=== PATIENT | female | born 1990 | race Caucasian/White ===

== ENCOUNTER 2019-08-19 17:18 | Observation (INO) | payer OTHER, SELFPAY ==
[2019-08-19 18:00] VITALS: BMI 34.0
--- NOTE | 2019-08-19 18:48 | OBADM ---
This patient, Marcy Garay, admitted to the OB room Labor/Delivery/Recovery 120 for observation. Patient/family oriented to hospital policies and general routines including ID bracelet, bed and alarms, visiting hours, pain management, procedures, bathroom and other care routines, personal items, smoking policy, room service/diet, and visiting hours. Patient/Family are encouraged to report perceived risks to care and to ask questions if they do not understand what they are told or what they should do. Pt states she has been having cramping for past 2 weeks. Pt states she walked to bus stop today and pain increased. Pt has been leaking fluid for past 2 weeks and increased today around noon. Pt states pain was 10/10. Pain has decreased while sitting on stretcher. Pt feeling movements. Pt having irritability on monitors and talking throughand not breathing them.
[2019-08-19 18:50] LABS: Add Urine Microscopic? YES; Appearance Urine Cloudy (Clear); Bacteria Urine Trace /hpf; Bilirubin Urine Negative (Negative); Blood Urine Negative (Negative); Color Urine Yellow (Yellow); Glucose Urine UA Negative (Negative); Ketones Urine 2+ mg/dL (Negative); Leukocyte Esterase Ur Negative LEU/UL (NEGATIVE); Mucus Urine Moderate /lpf; Nitrate Urine Negative (Negative); Protein Urine 1+ mg/dL (Negative); Specific Grav Ur 1.023 (1.001-1.035); Squamous Epithelial Cell Urine Moderate /hpf (Few); Urobilinogen Urine Negative mg/dL (<2.0)
--- NOTE | 2019-09-02 07:57 | P.PNOB_ITS ---
OB - Triage/Final Diagnosis Evaluation Laboratory results: Laboratory Tests 08/19/19 18:31 Urine Color Yellow Urine Appearance Cloudy H Urine pH 5.0 Ur Specific [place] 1.023 Urine Protein 1+ H Urine Glucose (UA) Negative Urine Ketones 2+ H Ur Blood (Man) Negative Urine Nitrate Negative Urine Bilirubin Negative Urine Urobilinogen Negative Ur Leukocyte Esterase Negative Urine RBC 6-10 H Urine WBC 4-6 H Ur Squamous Epith Cells Moderate H Urine Bacteria Trace Urine Mucus Moderate H Final Diagnosis (1) False labor: Code(s): O47.9 - False labor, unspecified Status: Acute
== END 2019-08-19 19:49 | disposition home or self-care (01) ==
PROVIDERS: Advanced Practice Midwife; Admitting Provider Obstetrics & Gynecology; Visit Provider Obstetrics & Gynecology
DX: O47.1 False labor at or after 37 completed weeks of gestation (principal); Z3A.37 37 weeks gestation of pregnancy
CPT/HCPCS: 81001; 87086; 87088; G0378; G0379

== ENCOUNTER 2019-09-03 09:36 | Inpatient (IN) | payer OTHER, SELFPAY ==
--- NOTE | 2019-09-02 14:40 | PC.NURSE ---
VERIFIED WITH OR SCHEDULE AND PATIENT--C/S WITH TUBAL LIGATION ON 09/03/2019 AT 1200 PATIENT INSTRUCTED TO BE IN OB 2 HOURS BEFORE SURGERY TIME AND NOTHING BY MOUTH AFTER MIDNIGHT TONIGHT--PATIENT VERBALIZED HER UNDERSTANDING. PATIENT STATES SHE HAD LABS DRAWN TODAY
[2019-09-03] VITALS (54 sets, daily range): BP systolic 82–151; BP diastolic 42–95; PULSE 60–143; RESP 14–20; TEMP 36.3–36.8; O2SAT 83–100; BMI 34.7
[2019-09-03] MEDS: LACTATED RINGERS 1,000 ML 125 ML IV CONT (10:06)
--- NOTE | 2019-09-03 10:07 | WPDANESEPPF ---
Anes - Initial Pre Proc Eval Procedure: Operation Date: 09/03/19 12:00 Proposed Procedures p Section with Tubal Ligation - Nasir Pressley MD Date/Time: 09/03/19 10:07 Surgeon: Nasir Pressley MD Pre Op Diagnosis: Repeat , Vol Sterilization Patient Data Age: 28 Gender: F Height: 1.75 m Weight: 106.5 kg Last Vital Signs Pulse 98 09/03/19 09:54 BP 104/64 09/03/19 09:54 Pulse Ox 100 09/03/19 09:57 Allergies Allergy/AdvReac Type Severity Reaction Status Date / Time No Known Allergies Allergy Verified 09/02/19 14:22 Home Medications Medication Instructions Recorded Confirmed Type PNV cmb#95-ferrous fumarate-FA 1 tablet PO DAILY 08/19/19 08/19/19 History [] Patient hx anesthesia problems: none Family hx anesthesia problems: none PMFSH Past Medical History Medical History (Updated 09/03/19 @ 10:08 by Pérez Louise MD) Anxiety Migraine Scoliosis Surgical History Surgical History (Updated 09/03/19 @ 10:08 by Pérez Louise MD) H/O section X3 Family History Family History (Updated 09/02/19 @ 14:23 by Janes Resendiz RN) Father Diabetes mellitus Grandparent Diabetes mellitus Hypertension Social History Social History Substance use: never Spiritual care concerns: No Anes - Eval Final PreProcedure Day of Procedure 09/03/19 10:07 Patient weight: overweight Heart: regular rate and rhythm Lungs: clear to auscultation and normal air movement Airway: Mallampati scale class II Neurological: alert and oriented Last oral intake: >/= 8 hours ASA classification: II Emergent: no Anesthetic plan: proceed Anesthesia type and monitoring: regional spinal Informed Consent: The patient's anesthetic plan and its attendant risks and benefits were discussed with the patient/family/POA. Questions were solicited and answers provided to the satisfaction of the patient/family/POA.
--- NOTE | 2019-09-03 10:17 | PM.IMHP ---
H&P: HPI History of Present Illness Chief complaint: Repeat , Vol Sterilization Narrative: Marcy Garay is a 28 year old multiparous female with a term gestation and history of previous delivery. She presents for repeat delivery. She also has unwanted fertility. We have agreed to proceed with repeat delivery and bilateral tubal ligation. She understands the risk. She understands that injuries may occur that result in hospitalization, severe illness, and more surgery. She understands there is risk of hemorrhage and infection. She has completed the informed consent process is ready to proceed. Review of Systems Constitutional: Constitutional: Reports no additional constitutional complaints, Denies fatigue, Denies headache(s), Denies lethargy and Denies weakness Eyes: Eyes: Reports no additional eye complaints, Denies blurry vision and Denies photophobia ENT: Reports as per HPI, Denies headache(s) and Denies neck pain Cardiovascular: Cardiovascular: Denies chest pain, Denies diaphoresis, Denies leg edema, Denies palpitations and Denies dyspnea Respiratory: Respiratory: Denies hemoptysis, Denies dyspnea and Denies wheezing Gastrointestinal: Gastrointestinal: Denies abdominal pain, Denies melena, Denies bloating, Denies hematochezia, Denies nausea and Denies vomiting Genitourinary: Genitourinary: Reports no additional female genitourinary complaints Musculoskeletal: Musculoskeletal: Denies joint swelling, Denies neck pain, Denies numbness and Denies stiffness Neurologic: Denies Abnormal speech present, Denies confusion, Denies headache(s), Denies numbness and Denies weakness Psychiatric: Psychiatric: Denies anxiety, Denies confusion, Denies depression, Denies homicidal ideation and Denies suicidal ideation Endocrine: Endocrine: Denies fatigue and Denies palpitations Allergic/Immunologic: Allergic/Immunologic: Denies wheezing PMFSH Past Medical History Medical History (Updated 09/03/19 @ 10:20 by Nasir Pressley MD) Anxiety Migraine Scoliosis Surgical History Surgical History (Updated 09/03/19 @ 10:20 by Nasir Pressley MD) H/O section X3 Family History Family History (Updated 09/02/19 @ 14:23 by Janes Resendiz RN) Father Diabetes mellitus Grandparent Diabetes mellitus Hypertension Social History Social History Substance use: never Spiritual care concerns: No Meds Home Medications and Allergies Home Medications Medication Instructions Recorded Confirmed Type PNV cmb#95-ferrous fumarate-FA 1 tablet PO DAILY 08/19/19 08/19/19 History [] Allergies Allergy/AdvReac Type Severity Reaction Status Date / Time No Known Allergies Allergy Verified 09/02/19 14:22 Vital Signs Vital Signs - 24 hr 09/03/19 09:52 09/03/19 09:54 09/03/19 09:57 Pulse Rate 98 Blood Pressure 104/64 Pulse Oximetry 100 100 Exam Const: General: healthy appearing, comfortable and no acute distress; No confusion Orientation/consciousness: No confusion Eyes: Direct Ophthalmoscopy: No photophobia Resp: Auscultation: clear to auscultation bilaterally, no rales, no rhonchi and no wheezes Cardio: Rate: regular rate Heart sounds: no click, no murmurs and no rubs GI: Inspection: non-distended GI Palp: No abdominal tenderness Auscultation: normal bowel sounds Neuro: General: No confusion Speech: No Abnormal speech present Extrem: General: normal to inspection, no pedal edema and no calf tenderness Assessment and Plan Assessment and plan (1) Previous delivery, antepartum condition or complication: Code(s): O34.219 - Maternal care for unspecified type scar from previous delivery Status: Acute (2) Unwanted fertility: Code(s): Z30.09 - Encounter for other general counseling and advice on contraception Status: Acute Assessment and Plan: This patient is a 28-year-old mu
[2019-09-03] MEDS: ceFAZolin 2 GM/D5W 50 ML 2 GM/50 ML BAG IVPB (10:27)
--- NOTE | 2019-09-03 12:24 | PM.PROC ---
Procedure Note - Detailed Date of procedure: 09/03/19 Pre-op diagnosis: Repeat , Vol Sterilization Unwanted fertility Post-op diagnosis: same Procedure performed: Repeat low-transverse delivery, tubal ligation Description of procedure: The patient was taken the operating room. She was prepped and draped in the dorsal supine position with leftward tilt after induction of spinal anesthetic. When anesthesia was found to be adequate a low-transverse skin incision was made and carried down to the level the fascia with the knife. The fascial incision was made at the midline with a scalpel. The fascial incision was extended laterally with Cifuentes scissors. The fascia was tented upward superior and inferior with Sarah clamps. The rectus muscles were dissected off bluntly. The rectus muscles at the midline. The preperitoneal fat was dissected bluntly at the superior aspect of the separate the rectus muscles. The peritoneal cavity was entered bluntly in the same area. The peritoneal incision was extended superior and inferior with good position of bladder. Bladder blade was inserted. A low-transverse incision was made on the uterus with the scalpel. It was carried down the level of the amniotic cavity with a knife. The amniotic cavity bluntly. The uterine incision was made laterally with blunt traction. The was delivered. The cord was clamped and cut. The was handed off to waiting pediatric staff. Cord bloods were obtained. The placenta was removed manually. The uterus was exteriorized. Uterus cleared of all clots and debris. Uterus closed in 0 Vicryl in a running locked fashion. An imbricating layer of 0 Vicryl was also placed on the to bolster the closure. The right fallopian tube was grasped in the ampullary region with a Lg. It was raised away from the accompanying vein. A window was created in the broad ligament in this area of the tube. 0 Vicryl was used to ligate the proximal distal ends of the skeletonize region of the tube. The segment of the tube was resected with scissors. The cut surfaces were cauterized. On the contralateral side the tube but laid directly adjacent to the large underlying vein. The fimbriated end was raised and a window was created in the paratubal tissue at the distal tube. The vessels to the fimbriated and were clamped and transected and ligated with 0 Vicryl. The proximal end was ligated, transected, and the cut surface was cauterized. The vessels to the fimbriated and that were ligated began bleeding. Cautery was used to make the area hemostatic. However, this failed. A window was created in the broad ligament. Sutures were passed through this window in the area the large the oozing vein. Two sutures were placed on opposite sides of the bleeding area. They were cinched down. The bleeding in the area the distal fallopian to the improved. There was just very slight oozing in this area. However, the window created in the broad ligament began to bleed. This bleeding could not be directly visualized. It was within the thickness of the broad ligament. The suspensory ligament the ovary, fallopian to proximally, and round ligament were clamped transected and suture ligated in the corneal area of the uterus. The adnexa/broad ligament were opened on the bleeding areas could be visualized. Hemostats were placed on 2 open veins. They were ligated with suture. The area became hemostatic. However, there was marked oozing in the area of the uterine cornua. Oxturd-uy-efbsy sutures were placed in this area to make it hemostatic. Direct pressure was applied to this area and it became hemostatic. The uterus was returned to the abdomen. The areas of concern were observed for a period of time. They were found to be hemostatic. Hemaderm was applied to the operative areas in the adnexa on the left. The gutters were cleared of all clots and debris. The fascia was closed
--- NOTE | 2019-09-03 12:31 | LDADM ---
This patient, Marcy Garay, was admitted to Labor/Delivery/Recovery 119 on 09/03/19 at 09:36. Plans for labor, pain management and were discussed with patient. Patient/family oriented to hospital policies and general routines including ID bracelet, bed and alarms, visiting hours, pain management, procedures, bathroom and other care routines, personal items, smoking policy, room service/diet and guest tray routines, infant security routines, call light, and visiting hours. Patient/Family are encouraged to report perceived risks to care and to ask questions if they do not understand what they are told or what they should do. See [facility] for further documentation.
[2019-09-03] MEDS: KETOROLAC 30 MG/ML VIAL (*BKC) IV PUSH (12:56)
--- NOTE | 2019-09-03 15:07 | PC.NURSE ---
Vital signs remained within normal range in recovery. R - 13-20. NSR. Lungs CTA throughout. Bowels active in all quadrants. IVF's infusing well over left wrist #18 gauge IV. [place] is draining clear, yellow urine to gravity. Pt rates her cramping/incision pain 3-5 at times. Pt receives pain medication PRN and states she gets relief from the pain. 1236 Pt moves all extremeties to command. Incision remains well approximated and SULEMAN. Fundus firm, midline at umbilicus.
--- NOTE | 2019-09-03 16:54 | OBPPTRN ---
Patient transferred to post room #286 via stretcher. Support person present. Oriented to unit, room, information board, rooming in, admission packet and security measures. Patient verbalizes understanding.
[2019-09-03] MEDS: NALBUPHINE HCL 10 MG/ML AMPUL 2 MG IV PUSH ×2 (17:33→23:41)
[2019-09-03] MEDS: KCL 20 MEQ/D5/0.45% SOD CHL 1,000 ML 125 ML IV CONT (18:24)
[2019-09-03] MEDS: ACETAMINOPHEN 325 MG TABLET 650 MG PO (20:18)
[2019-09-03] MEDS: IBUPROFEN 600 MG TABLET PO (23:42)
[2019-09-04] VITALS: BP 115/64; PULSE 90; RESP 20; TEMP 36.7
[2019-09-04] MEDS: SIMETHICONE 80 MG TAB.CHEW PO ×5 (03:05→15:45)
[2019-09-04 05:20] VITALS: BP 110/52; PULSE 90; RESP 16; TEMP 36.8
[2019-09-04 05:25] LABS: Basophils Percent Auto 0.1 % (0.2-1.2); Eosinophils Absolute Auto 0.1 K/mm3 (0-0.3); Eosinophils Percent Auto 0.6 % (0-4.4); Hemoglobin 8.5 g/dL (12.0-15.0); Immature Granulocyte Absolute 0.04 K/mm3 (0.00-0.031); Immature Granulocyte Percent A 0.5 % (0-0.5); Lymphocytes Absolute Auto 1.17 K/mm3 (0.9-3.2); Lymphocytes Percent Auto 14.7 % (18.3-44.2); Mean Corpuscular HGB Conc 32.7 g/dl (32-36); Mean Corpuscular Hemoglobin 29.9 pg (26-34); Mean Corpuscular Volume 91.5 fl (80-100); Mean Platelet Volume 10.2 fl (7.4-10.4); Monocytes Percent Auto 12.3 % (2.6-8.5); Neutrophils Absolute Auto 5.7 K/mm3 (1.3-6.7); Neutrophils Percent Auto 71.8 % (45.5-73.1); Platelet Count Result 170 k/mm3 (150-375); Red Blood Count 2.84 M/mm3 (4.2-5.4); Red Cell Distribution Width 14.6 % (11.5-14.5)
[2019-09-04] MEDS: IBUPROFEN 600 MG TABLET PO ×3 (05:31→19:17)
--- NOTE | 2019-09-04 07:30 | PC.NURSE ---
PT introductions made and plan of care discussed per post op c section, pain management, bottle feeding, daily care activities. PT verbalized understanding of such care.
--- NOTE | 2019-09-04 07:31 | PM.OBPNVD ---
OB - PN: Subj Subjective Date/time seen: 09/04/19 07:31 OB - PN: Obj Data Labs CBC & Chem 7: 09/04/19 05:14 Labs: Laboratory Results - last 24 hr 09/04/19 09/04/19 05:14 05:14 WBC 8.0 RBC 2.84 L Hgb 8.5 L Hct 26.0 L MCV 91.5 MCH 29.9 MCHC 32.7 RDW 14.6 H Plt Count 170 MPV 10.2 Immature Gran % (Auto) 0.5 Neut % (Auto) 71.8 Lymph % (Auto) 14.7 L [place] % (Auto) 12.3 H Eos % (Auto) 0.6 Baso % (Auto) 0.1 L Lymph # (Auto) 1.17 [place] # (Auto) 1.0 H Eos # (Auto) 0.1 Baso # (Auto) 0.0 Abs Immat Gran (auto) 0.04 H Absolute Neuts (auto) 5.7 Absolute Nucleated RBC 0.0 Nucleated RBC % 0.0 Blood Type AB Negative Antibody Screen Negative Screen Negative Baby's Blood Type B pos Baby's NANO Negative Doses of RhIg Required 1 OB - PN A/P Plan day: 1 Plan: routine care Time Spent With Patient Time: Total time spent is greater than 50% in coordination of care (as documented) at patient's floor/unit and/or counseling patient: Review of Systems Review of Systems: All systems reviewed & are unremarkable except as noted in HPI and below Neurologic: Reports system reviewed and no additional complaints, except as documented Exam Const: General: comfortable Resp: Effort & Inspection: normal respiratory effort Psych: Appearance: grossly normal Affect: normal affect Attitude: cooperative
[2019-09-04 08:09] VITALS: BP 91/54; PULSE 78; RESP 16; TEMP 36.4; O2SAT 98
[2019-09-04] MEDS: POLYSACCHARIDE IRON COMPLEX 150 MG CAPSULE PO ×2 (09:20→15:45)
[2019-09-04] MEDS: DOCUSATE SODIUM 100 MG CAPSULE PO ×2 (09:20→15:45)
[2019-09-04] MEDS: RHO(D) IMMUNE GLOBULIN 300 MCG SYRINGE IM (09:20)
[2019-09-04 10:30] VITALS: PULSE 78; RESP 16; O2SAT 98
--- NOTE | 2019-09-04 10:54 | PC.NURSE ---
On 09/04/19, the student, [Sabrina Pearson, ], provided care and completed [employer] documentation on this patient. I have reviewed the student's documentation and agree with the findings.
[2019-09-04] MEDS: TETANUS,DIPHTHERIA,AC PERTUSSIS ADULT 0.5 ML (ADACEL) IM (11:32)
--- NOTE | 2019-09-04 13:43 | WPDANLDPN2 ---
Anes-Prog Note L&D Date/Time: 09/04/19 13:43 Comfortable throughout: section Neuraxial method: spinal Epidural/Spinal procedure site: clean & non-tender Neuro status: Neuro function grossly intact. Cardiovascular status: normal Respiratory status: normal Airway patency: baseline Mental status: baseline Post-Op hydration status: normal Vital Signs: Last Vital Signs Temp 97.5 F L 09/04/19 08:09 Pulse 78 09/04/19 10:30 Resp 16 09/04/19 10:30 BP 91/54 L 09/04/19 08:09 Pulse Ox 98 09/04/19 10:30 I/O: Intake & Output 09/03/19 09/04/19 09/04/19 23:59 07:59 15:59 Intake Total 2647 1000 Output Total 650 2400 Balance 1996 -1399 Post-procedural complaints: none Patient feedback: Patient satisfied with anesthetic care.
--- NOTE | 2019-09-04 13:44 | WPDANLDNPN2 ---
Anes-Prog Note L&D-Neuraxial Date/Time: 09/04/19 13:44 Neuraxial medications: intrathecal PF morphine Opiod-related complaints: pruritis severe, treatment refractory Patient feedback: Patient satisfied with post-operative pain management.
[2019-09-04 19:20] VITALS: BP 85/54; PULSE 86; RESP 16; TEMP 36.9
[2019-09-05] MEDS: IBUPROFEN 600 MG TABLET PO (05:32)
[2019-09-05] MEDS: SIMETHICONE 80 MG TAB.CHEW PO ×2 (05:38→08:23)
--- NOTE | 2019-09-05 07:28 | PM.OBPNVD ---
OB - PN: Subj Subjective Date/time seen: 09/05/19 07:28 Patient comments: no complaints, pain well controlled, incisional pain, tolerating diet and flatus present OB - PN: Obj Data Labs CBC & Chem 7: 09/04/19 05:14 Labs: Laboratory Results - last 24 hr 09/04/19 05:14 Blood Type AB Negative Antibody Screen Negative Screen Negative Baby's Blood Type B pos Baby's NANO Negative Doses of RhIg Required 1 OB - PN A/P Plan day: 2 Plan: routine care Comments: POD#2 LTCS - no problems, routine care, to recheck cbc Time Spent With Patient Time: Total time spent is greater than 50% in coordination of care (as documented) at patient's floor/unit and/or counseling patient: Exam Const: General: comfortable, no acute distress and alert Resp: Effort & Inspection: normal respiratory effort Auscultation: no crackles, no rales and no rhonchi Cardio: Rate: regular rate Heart sounds: no click, no murmurs and no rubs GI: Inspection: non-distended GI Palp: No Tenderness to palpation present (GI) Auscultation: normal bowel sounds Other: Incision - CDI Extrem: General: normal to inspection, no pedal edema and no calf tenderness
[2019-09-05 07:35] VITALS: BP 104/63; PULSE 82; RESP 16; TEMP 36.9; O2SAT 100
[2019-09-05] MEDS: DOCUSATE SODIUM 100 MG CAPSULE PO (08:23)
[2019-09-05] MEDS: POLYSACCHARIDE IRON COMPLEX 150 MG CAPSULE PO (08:23)
--- NOTE | 2019-09-25 11:43 | PM.OBDSVD ---
DS: Diagnosis Admitting Diagnosis Admitting Diagnosis: Encounter for supervision of normal , unspecified, third trimester Discharge Diagnosis (1) Unwanted fertility: Code(s): Z30.09 - Encounter for other general counseling and advice on contraception Status: Acute (2) Previous delivery, antepartum condition or complication: Code(s): O34.219 - Maternal care for unspecified type scar from previous delivery Status: Acute OB - DS: Summary OB Procedures : Ultrasound OB Procedures Intrapartum: and Tubal ligation OB Procedures: : None Peripartum Data Infant Delivery Method: Section Laceration description: None Procedures: Procedures Operation Date: 09/03/19 12:00 Actual Procedures Side Surgeon p Section Nasir Pressley MD Time Spent with Patient Time attestation: Total time spent providing and/or coordinating discharge services: DS: Data Data Completed and Pending Completed studies during hospitalization: Pending at discharge 09/03/19 11:02 Surgical [PTH] Routine Discharge Plan Discharge Attending physician on discharge: Nasir Pressley Consulting providers: Claude Dumont ; Estefanía Potter ; Pérez Louise Discharging Clinician: Nasir Pressley Patient Disposition: Home, Self-Care Activity: may drive after 2 weeks and pelvic rest Diet: regular Discharge Instructions: Education: Mom and Baby Guide Given to: Mother Follow-Up: Call your delivering provider's office for an appointment to be seen in: 1 Week Mom and baby should come to the [facility] for the follow-up appointment. Appointment Date/Time: September 06, 2019 at 9:00 am What to expect at your follow-up visit: Physical Assessment Call [phone] if you are unable to keep your appointment time. BREAST CARE: 1. Wear a snug supportive bra. 2. For engorgement discomfort: Bottle Feeding: A. May apply ice packs ABDOMINAL INCISION: (if applicable) 1. Allow incision to air dry 2. Do NOT use lotions for powders on your incision 3. When showering, allow soap and water to run over the incision, but do not wash incision EPISIOTOMY/PERINEAL CARE: 1. Until bleeding stops, use your larissa bottle after urinating 2. Change your pad frequently throughout the day 3. No tub baths until seen by your physician - You may shower ACTIVITY: 1. Rest as much as possible. 2. Do not exercise or lift anything heavier than your baby (such as laundry or other children.) 3. Avoid stairs or driving as much as possible. 4. Do not put anything into the vagina. No douching, tampons, or sexual activity until seen by physician. NOTIFY PHYSICIAN IF YOU HAVE ANY QUESTIONS OR IF ANY OF THE FOLLOWING SYMPTOMS OCCUR: 1. If your incision becomes red, swollen, or more painful than what you have experienced in the hospital. 2. If your vaginal bleeding becomes foul smelling. 3. If your vaginal bleeding becomes more heavy than a period or if your bleeding changes from pink to bright red. However, you may pass an occasional walnut-sized clot once or twice for the first week . 4. If you experience a sharp, shooting pain in you calves. 5. If you discover a hard, reddened area on your breast or if you experience flu-like symptoms. DIET: 1. Eat regular, well-balanced meals. 2. Drink plenty of fluids daily. Stand Alone Forms: General Discharge Information Follow-up/Referrals: Nasir Pressley MD [Physician] - Discharge Medications: New polysaccharide iron complex 150 mg iron Capsule 150 mg PO BIDWM RF: 0 Discontinued PNV cmb#95-ferrous fumarate-FA [] 28 mg iron- 800 mcg Tablet 1 tablet PO DAILY RF: 0 Date of admission: 09/03/19 09:36 Primary Care Provider: UNKNOWN,DOCTOR Admitting Provider: Nasir Pressley Discharge Date/Time: 09/05/19 14:06 Attending physician on admission: Nasir Pressley
== END 2019-09-05 14:06 | disposition home or self-care (01) | DRG 540 ==
LOC: ANHLDR 10:34 → ANHOB2 14:56
PROVIDERS: Admitting Provider Obstetrics & Gynecology; Visit Provider Obstetrics & Gynecology
PROC: 10D00Z1 Extraction of Products of Conception, Low, Open Approach (ICD-10-PCS; CPT 59514; principal; 2019-09-03 12:00)
DX: O34.211 Maternal care for low transverse scar from previous cesarean delivery (principal); Z37.0 Single live birth; Z3A.39 39 weeks gestation of pregnancy; O69.81X0 Labor and delivery complicated by cord around neck, without compression, not applicable or unspecified; Z30.2 Encounter for sterilization; O99.344 Other mental disorders complicating childbirth; F41.9 Anxiety disorder, unspecified; O99.89 Other specified diseases and conditions complicating pregnancy, childbirth and the puerperium; M41.9 Scoliosis, unspecified
CPT/HCPCS: 36415; 85025; 86850; 88302; 90384; 90715; A9270; J0131; J0690; J1200; J1885; J2250; J2274; J2300; J2370; J2405; J2590; J2704; J2790; J3010; J3480; J7120